=== PATIENT | female | born 1955 | race Caucasian/White ===

== ENCOUNTER → 2021-04-06 | Outpatient (CLI) | payer MEDICARE, OTHER ==
--- NOTE | 2021-04-06 14:29 | Diagnostic Imaging Report ---
EXAMINATION: CT Lung Screening. INDICATION: Current smoker with a 40 pack year history. TECHNIQUE: Noncontrast, low-dose CT imaging performed according to lung cancer screening protocol. Auto Exposure Controls were utilized during the CT exam to meet ALARA standards for radiation dose reduction. COMPARISON: None. FINDINGS: HEART/MEDIASTINUM: Heart size normal. Thoracic aortic contour unremarkable. No suggestion for pathologically enlarged mediastinal lymph nodes on limited, noncontrast imaging. Bilateral breast implants intact. Coarse calcification along the medial right implant surface. LUNGS/MEASURED PULMONARY NODULES: Advanced emphysematous change about the lung parenchyma. Prominent subpleural bullous changes and mild honeycombing present, slightly greater involving the bilateral upper lobe distribution. On image 111 series 2, there is asymmetric nodularity with what appear to be spiculated margins suggested in the right infrahilar region, central right middle lobe. This measures 18 x 13 x 18 mm. OTHER: None. IMPRESSION: Concern for potential nearly 2 cm right infrahilar, central right middle lobe mass. LUNG-RADS CATEGORY: 4b. LUNG SCREENING MANAGEMENT/RECOMMENDATIONS: Given the central location, initially correlation with a PET/CT and/or contrast enhanced CT imaging of the chest is recommended for further assessment. The report was called and faxed to the office of Jose J De La O APRN, by tamara@2:28 PM. Dictated by: Dictated on workstation # [id number]
== END ==
LOC: RAD 13:15
PROVIDERS: ATTEND Nurse Practitioner Family
DX: Z12.2 Encounter for screening for malignant neoplasm of respiratory organs (principal); Z00.00 Encounter for general adult medical examination without abnormal findings; J44.9 Chronic obstructive pulmonary disease, unspecified; R91.8 Other nonspecific abnormal finding of lung field; F17.210 Nicotine dependence, cigarettes, uncomplicated
CPT/HCPCS: 71271

== ENCOUNTER → 2021-04-14 | Outpatient (CLI) | payer MEDICARE, OTHER ==
--- NOTE | 2021-04-14 15:35 | Diagnostic Imaging Report ---
INDICATION: Right middle lobe lung mass. TECHNIQUE: The serum blood glucose level at the time of injection was 99 mg/dL. The patient was administered 13.4 mCi of F-18 FDG intravenously in the left antecubital location and PET imaging was performed from the top of the skull to the mid thighs. Noncontrast CT was also performed for attenuation correction and anatomic correlation. COMPARISON: No prior PET studies are available for comparison. Comparison is made with the CT screening study from 04/06/2021. FINDINGS: There is symmetric activity throughout the brain. The soft tissues of the neck are unremarkable. There is a hypermetabolic mass in the right middle lobe corresponding to the spiculated density noted on the recent CT chest screening study. This measures approximately 15 mm in size. The SUV max is approximately 6. No other hypermetabolic foci in the chest are identified. The savanna and mediastinum are unremarkable. There is physiologic activity throughout the GI and tracts of the abdomen and pelvis. IMPRESSION: 15 mm hypermetabolic mass in the right middle lobe, suspicious for a small lung neoplasm. No hypermetabolic lymphadenopathy or evidence of metastatic disease is identified. Dictated by: Dictated on workstation # [id number]
== END ==
LOC: RAD 10:30
PROVIDERS: ATTEND Nurse Practitioner Family
DX: R91.8 Other nonspecific abnormal finding of lung field (principal)
CPT/HCPCS: 78815; A9552

== ENCOUNTER → 2021-07-09 | Outpatient (CLI) | payer MEDICARE, OTHER ==
[~2021-07-09] MED LIST: RT-ALBUTEROL SULF 2.5 MG/3 ML PRE-MIX VIAL INH ONE
== END ==
LOC: RT 07:43
PROVIDERS: ATTEND Radiology Radiation Oncology
DX: C34.90 Malignant neoplasm of unspecified part of unspecified bronchus or lung (principal)
CPT/HCPCS: 94060; 94726; 94729

== ENCOUNTER → 2021-08-20 | Outpatient (CLI) | payer MEDICARE, OTHER ==
--- NOTE | 2021-08-20 11:35 | Diagnostic Imaging Report ---
EXAMINATION: Magnetic resonance imaging of the right shoulder without contrast. DATE: August 20, 2021. COMPARISON: None. HISTORY: 65-year-old female, right shoulder pain. Injury lifting. TECHNIQUE: Magnetic Resonance Imaging sequences were performed of the shoulder without contrast. FINDINGS: ROTATOR CUFF, LIGAMENTS, TENDONS, AND MUSCLES: There is a 6 mm wide approximately 50% partial thickness articular sided tear of supraspinatus with retraction of torn undersurface tendon fibers by 12 mm as measured on coronal T2 fat saturation sequence image 8. The infraspinatus and teres minor tendons are intact. There is an interstitial tear of the subscapularis tendon. There is normal rotator cuff muscle bulk and signal. LONG HEAD OF BICEPS: The proximal long head of biceps tendon is medially dislocated outside of the bicipital groove. There is proximal long head of biceps tendinopathy. GLENOHUMERAL JOINT: The humeral head is well positioned relative to the glenoid. The labrum is grossly intact. There is no identified paralabral cyst. The articular cartilage is grossly intact. There is no joint effusion. ACROMIOCLAVICULAR JOINT: The acromioclavicular joint is normally aligned. The coracoclavicular and coracoacromial ligaments are intact. There are mild acromioclavicular degenerative changes without undersurface osteophyte. BONE: There is no os acromiale. There is no Hill-Sachs deformity. There is subcortical cystic change underlying the infraspinatus tendon insertion in the humeral head. There is no acute fracture, bone contusion, or evidence of osteonecrosis. BURSAE AND SOFT TISSUES: The bursae and soft tissue surrounding the shoulder are unremarkable. IMPRESSION: 1. 6 mm wide 50% partial thickness articular sided tear of supraspinatus with tendon retraction of undersurface tendon fibers by 12 mm. Interstitial tear of the subscapularis tendon. No fatty muscle atrophy. 2. The proximal long head of biceps tendon is medially dislocated outside of the bicipital groove. There is proximal long head of biceps tendinopathy. 3. Grossly intact labrum and unremarkable additional glenohumeral joint assessment. 4. Mild acromioclavicular degenerative changes without undersurface osteophyte. 5. No acute fracture, bone contusion, or evidence of osteonecrosis. Dictated by: Dictated on workstation # [id number]
== END ==
LOC: RAD 08:18
PROVIDERS: ATTEND Nurse Practitioner Family
DX: M75.111 Incomplete rotator cuff tear or rupture of right shoulder, not specified as traumatic (principal); M19.011 Primary osteoarthritis, right shoulder; S43.004A Unspecified dislocation of right shoulder joint, initial encounter; C34.91 Malignant neoplasm of unspecified part of right bronchus or lung; G89.29 Other chronic pain; X50.9XXA Other and unspecified overexertion or strenuous movements or postures, initial encounter
CPT/HCPCS: 73221

== ENCOUNTER → 2022-05-25 | Outpatient (CLI) | payer MEDICARE, OTHER ==
--- NOTE | 2022-05-25 09:35 | Diagnostic Imaging Report ---
INDICATION: Postmenopausal screening COMPARISON: None FINDINGS: AP Spine L1-L4: [BMD (g/cm2): 0.805] [T-Score: -3.3] [Z-Score: -1.3] [BMD Previous: na] [BMD % Change: na] LT Hip Neck: [BMD (g/cm2): 0.817] [T-Score: -1.6] [Z-Score: 0.2] LT Hip Total: [BMD (g/cm2):0.889] [T-Score:-0.9] [Z-Score: 0.6] [BMD Previous: na] [BMD % Change: na] RT Hip Neck: [BMD (g/cm2):0.816] [T-Score:-1.6] [Z-Score:0.2] RT Hip Total: [BMD (g/cm2):0.842] [T-score:-1.3] [Z-Score:0.3] [BMD Previous:na] [BMD % Change:na] *Indicates significant change from prior examination based on 95% confidence level. World Health Organization criteria for BMD interpretation classify patients as Normal (T-score at or above -1.0), Osteopenic (T-score between -1.0 and -2.5) or Osteoporotic (T-score at or below -2.5). LIMITATIONS AND MODIFICATION: None. FRACTURE RISK (FRAX SCORE): The ten year probability of (%): Major Osteoporotic Fracture: [9.1] Hip Fracture: [2.0] IMPRESSION: 1. Osteoporosis. 2. See below National Osteoporosis Foundation guidelines on when to potentially initiate pharmacologic therapy. Based on the National Osteoporosis Foundation Guidelines, pharmacologic treatment should be initiated in any of the following, unless clinical conditions suggest otherwise: * Any patient with prior fragility fracture of the hip or vertebrae. A spine fracture indicates 5X risk for subsequent spine fracture and 2X risk for subsequent hip fracture. * Osteoporosis (T-score <-2.5). * Postmenopausal women and men age 50 and older with low bone mass/osteopenia (T-score between -1.0 and -2.5) by DXA and 10-year major osteoporotic fracture greater than 20% or a 10-year probability of hip fracture greater than 3%. These fracture risks are supplied above in the FRAX score, if applicable. * Clinician judgement and/or patient preferences may indicate treatment for people with 10-year fracture probabilities above or below these levels. Dictated by: Dictated on workstation # [id number]
== END ==
LOC: RAD 08:38
PROVIDERS: ATTEND Nurse Practitioner Family
DX: Z13.820 Encounter for screening for osteoporosis (principal); M81.0 Age-related osteoporosis without current pathological fracture; Z78.0 Asymptomatic menopausal state
CPT/HCPCS: 77080

== ENCOUNTER → 2023-01-17 | Outpatient (CLI) | payer MEDICARE, OTHER ==
--- NOTE | 2023-01-17 12:49 | Diagnostic Imaging Report ---
PROCEDURE: CT chest without contrast. TECHNIQUE: Multiple contiguous axial images were obtained through the chest without the use of intravenous contrast. Auto Exposure Controls were utilized during the CT exam to meet ALARA standards for radiation dose reduction. INDICATION: C34.90 COMPARISON: 04/06/2021 FINDINGS: Bilateral breast implants are in place. No significant adenopathy within chest, though sensitivity is limited secondary to lack of intravenous contrast. Mild vascular calcifications without aneurysmal dilatation of thoracic aorta. The heart is within normal limits in size. No significant pericardial effusion. No pleural effusion. Previously noted central right middle lobe pulmonary nodule is no longer visualized. Currently, there is volume loss noted associated with any residual right middle lobe. Mild background emphysematous changes. Stable 0.4 cm left upper lobe pulmonary nodule, series 3, image 37. New 0.4 cm right lower lobe pulmonary nodule, series 80. This is near the postsurgical changes within the right middle lobe. The trachea is patent. The adrenal glands appear stable in the prior exam. Visualized upper abdomen appears unremarkable. Mild scattered osseous degenerative changes without acute osseous abnormality. IMPRESSION: New 0.4 cm right lower lobe pulmonary nodule. This is favored to simply relate to scarring and postsurgical changes. However, a followup CT of the chest is recommended in 6 months given interval development. Previously noted right middle lobe irregular pulmonary nodule is no longer visualized. Significant volume loss and near complete collapse of the residual right middle lobe. Background emphysematous changes. Additional postsurgical and chronic findings as above. Dictated by: Dictated on workstation # [id number]
== END ==
LOC: RAD 09:39
PROVIDERS: ATTEND Radiology Radiation Oncology
DX: C34.90 Malignant neoplasm of unspecified part of unspecified bronchus or lung (principal); R91.8 Other nonspecific abnormal finding of lung field; J43.9 Emphysema, unspecified; Z98.82 Breast implant status
CPT/HCPCS: 71250

== ENCOUNTER 2023-06-15 08:24 | Outpatient (CLI) | payer MEDICARE, OTHER ==
[~2023-06-15] VITALS: Ht 155 cm; Wt 55.2 kg
[2023-06-15] MEDS ORDERED: ATOR20TA66 PO (14:20)
[2023-06-15] MEDS ORDERED: ASPI-1238 PO (14:20)
== END 2023-06-15 14:23 | disposition home or self-care (01) ==
LOC: PREOP 08:24
PROVIDERS: ATTEND Surgery
DX: Z01.818 Encounter for other preprocedural examination (principal)

== ENCOUNTER 2023-06-28 08:20 | Day surgery (SDC) | payer MEDICARE, OTHER ==
[~2023-06-28] VITALS: Ht 155 cm; Wt 55.2 kg
[~2023-06-28 08:20] MED LIST changes: +ASPI-1238 PO; +ATOR20TA66 PO; -RT-ALBUTEROL SULF 2.5 MG/3 ML PRE-MIX VIAL INH ONE
[2023-06-28] MEDS ORDERED: LACTATED RINGERS 1,000 ML IV STA (08:28)
[2023-06-28] MEDS ORDERED: HURRICAINE EXT TUBE (BENZOCAINE) XX PRN (08:30)
--- NOTE | 2023-06-28 08:50 | Progress Note-Pre Operative ---
Pre-Operative Progress Note Date H&P Reviewed: Jun 28, 2023 Time H&P Reviewed: 08:50 History & Physical: H&P Reviewed, Patient Examed, No changes noted Pre-Operative Diagnosis: GERD and screening colonoscopy GUALBERTO COUGHLIN DO Jun 28, 2023 08:50
[2023-06-28] MEDS ORDERED: PROPOFOL INJECTION 50 ML IV ONE (10:01)
[2023-06-28] MEDS ORDERED: MIDAZOLAM INJ 2 MG/2 ML VIAL ONE (10:01)
[2023-06-28] MEDS ORDERED: PHENYLEPHRINE 100 MCG/ML 10 ML (ANESTHESIA) SYR ONE (10:37)
[2023-06-28 10:44] VITALS: BP 117/59
[2023-06-28 10:49] VITALS: BP 96/46
[2023-06-28 10:54] VITALS: BP 91/53
--- NOTE | 2023-06-28 10:54 | Progress Note-Post Operative ---
Post-Operative Progess Note Surgeon (s)/Agent Producer (s) Surgeon GUALBERTO COUGHLIN DO Agent Producer: none Pre-Operative Diagnosis GERD and screening colonoscopy Post-Operative Diagnosis colon polyps, duodenitis, mucosal change of body Procedure & Operative Findings Date of Procedure 06/28/23 Procedure Performed/Findings egd with biopsies colonoscopy with hot bx polypectomy x5 Anesthesia Type per ORDER MANAGER Estimated Blood Loss Estimated blood loss (mL): none Specimens/Packing Specimens Removed duodenum, antrum, body of stomach, ge sigmoid, rectum GUALBERTO COUGHLIN DO Jun 28, 2023 10:53
[2023-06-28 10:57] VITALS: BP 109/58
[2023-06-28] MEDS ORDERED: PANT40TA2 PO (10:57)
--- NOTE | 2023-06-28 11:00 | Discharge Inst-Simple/Standard ---
Discharge Inst-Standard Discharge Medications New, Converted or Re-Newed RX: Transmitted to Pharmacy Patient Instructions/Follow Up Plan of Care/Instructions/FU: Halima 2 weeks Activity as Tolerated: Yes Discharge Diet: Regular Diet GUALBERTO COUGHLIN DO Jun 28, 2023 11:00
[2023-06-28 11:10] VITALS: BP 109/58
[2023-06-28 11:48] VITALS: BP 109/58
--- NOTE | 2023-06-28 14:09 | Anesthesia-General Post-Op ---
MAC Patient Condition Mental Status/LOC: Same as Preop Cardiovascular: Satisfactory Nausea/Vomiting: Absent Respiratory: Satisfactory Pain: Controlled Complications: Absent Post Op Complications Complications None Follow Up Care/Instructions Patient Instructions None needed. Anesthesiology Discharge Order Discharge Order Patient is doing well, no complaints, stable vital signs, no apparent adverse anesthesia problems. No complications reported per nursing. MARYJO MEYER CRNA Jun 28, 2023 14:09
--- NOTE | 2023-06-28 15:11 | OPERATIVE REPORT ---
DATE OF SERVICE: 06/28/2023 PREOPERATIVE DIAGNOSES: Gastroesophageal reflux disease and screening colonoscopy. POSTOPERATIVE DIAGNOSIS: Colon polyps, duodenitis, mucosal change of the body of the stomach. PROCEDURES: EGD with biopsies, colonoscopy with hot biopsy polypectomy x5. SURGEON: Gualberto Varghese DO ANESTHESIA: Per CLIENT SUCCESS MANAGER. ESTIMATED BLOOD LOSS: None. COMPLICATIONS: None. SPECIMEN: Duodenum, antrum, body of stomach, GE junction, sigmoid and rectal polyps. INDICATIONS: The patient is a [id number], needing screening colonoscopy and has GERD symptoms. She understands risks and benefits of procedure and wishes to proceed. Consent was signed in chart. DESCRIPTION OF PROCEDURE: The patient was taken to endoscopy suite, placed in left lateral recumbent position. Timeout was performed. Scope was inserted in the mouth, down the esophagus, stomach, into the duodenum without difficulty. No polyps, masses or ulcerations within the duodenum in the second portion. In the first portion, a limited duodenitis appearance. Biopsy of duodenum was obtained. Scope was slowly retracted back into the stomach. No polyps, masses or ulcerations. Slight erythematous changes. Biopsy of the antrum was obtained. Also some mucosal changes of the body of stomach, which biopsy of the body was obtained as well. Scope was retroflexed , noting no other pathology. Scope was returned to its normal position, slowly withdrawn until distal esophagus. Biopsy of GE junction was obtained. Scope was then slowly retracted back until completely removed, noting no other pathology. 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 No masses or ulcerations. Scope was inserted in the rectum, advanced all the way to the cecum with minimal difficulty. Prep was adequate. Scope was then slowly retracted back. No polyps, masses or ulcerations in the cecum, ascending, transverse, descending colon. Sigmoid colon had 2 small polyps, which hot biopsy polypectomy was performed. Scope was then continuously retracted back to the rectum where 3 small polyps were present, which hot biopsy polypectomy was performed. Scope was retroflexed noting the fibroepithelial polyp. Scope was returned to its normal position, slowly withdrawn until completely removed. The patient tolerated the procedure well without complications, taken to recovery room in stable condition. RECOMMENDATIONS: The patient will be started on Protonix 40 mg daily. We will see how her symptoms are doing in a couple of weeks. Recommend she followups to go over pathology. She would like to have the fibroepithelial polyp removed, we could do that in the OR. The patient will need repeat colonoscopy in 5 years. Job ID: [id number] DocumentID: [id number] Dictated Date: 06/28/2023 11:02:51 Field Secretary Date: 06/28/2023 15:09:00 Dictated By: GUALBERTO VARGHESE DO
== END 2023-06-28 11:48 | disposition home or self-care (01) ==
LOC: ENDO 08:20
PROVIDERS: ATTEND Surgery
DX: Z12.11 Encounter for screening for malignant neoplasm of colon (principal); K63.5 Polyp of colon; K62.1 Rectal polyp; K25.9 Gastric ulcer, unspecified as acute or chronic, without hemorrhage or perforation; K21.00 Gastro-esophageal reflux disease with esophagitis, without bleeding; K29.80 Duodenitis without bleeding; K31.89 Other diseases of stomach and duodenum; F17.210 Nicotine dependence, cigarettes, uncomplicated

== ENCOUNTER 2023-07-12 05:30 | Outpatient (CLI) | payer MEDICARE, OTHER ==
[~2023-07-12] VITALS: Ht 156 cm; Wt 54.0 kg
[~2023-07-12 05:30] MED LIST changes: +PANT40TA2 PO
[2023-07-12] MEDS ORDERED: TUME1CAP PO (15:40)
[2023-07-12] MEDS ORDERED: MULT-974 PO (15:40)
[2023-07-12] MEDS ORDERED: OMEG1CAP24 PO (15:40)
[2023-07-12] MEDS ORDERED: ALBU2.5V4 INH (15:40)
[2023-07-12] MEDS ORDERED: VIT1CAPS PO (15:40)
[2023-07-12] MEDS ORDERED: FEXO-14 PO (15:40)
== END 2023-07-12 16:53 | disposition home or self-care (01) ==
LOC: PREOP 05:30
PROVIDERS: ATTEND Surgery
DX: Z01.818 Encounter for other preprocedural examination (principal)

== ENCOUNTER 2023-07-14 08:13 | Day surgery (SDC) | payer MEDICARE, OTHER ==
[2023-07-14] VITALS (9 sets, daily range): BP systolic 89–116; BP diastolic 44–71
[~2023-07-14] VITALS: Ht 156 cm; Wt 54.0 kg
[~2023-07-14 08:13] MED LIST changes: +ALBU2.5V4 INH; +FEXO-14 PO; +MULT-974 PO; +OMEG1CAP24 PO; +TUME1CAP PO; +VIT1CAPS PO
[2023-07-14] MEDS ORDERED: ceFAZolin INJECTION 2,000 MG in NS (IVPB) 50 ML 50 ML IV ONE (08:30)
[2023-07-14] MEDS ORDERED: LACTATED RINGERS 1,000 ML 1,000 ML IV PRN (08:30)
[2023-07-14] MEDS ORDERED: LIDOCAINE/EPI 1%-1:200,000 (XYLOCAINE) 30 ML VIAL INJ ONE (09:01)
--- NOTE | 2023-07-14 09:23 | Progress Note-Pre Operative ---
Pre-Operative Progress Note Date H&P Reviewed: Jul 14, 2023 Time H&P Reviewed: 09:22 History & Physical: H&P Reviewed, Patient Examed, No changes noted Pre-Operative Diagnosis: fibroepithelial polyp GUALBERTO COUGHLIN DO Jul 14, 2023 09:23
[2023-07-14] MEDS ORDERED: fentaNYL INJECTION 100 MCG/2 ML VIAL ONE (09:48)
[2023-07-14] MEDS ORDERED: LIDOCAINE PF 2% 5 ML VIAL ONE (09:48)
[2023-07-14] MEDS ORDERED: proPOfol INJECTION 200 MG/20 ML VIAL IV ONE (09:48)
[2023-07-14] MEDS ORDERED: dexAMETHasone INJ 10 MG/ML 1 ML VIAL ONE (10:30)
[2023-07-14] MEDS ORDERED: ONDANSETRON INJECTION 4 MG/2 ML (SDV) ONE (10:30)
[2023-07-14] MEDS ORDERED: SEVOFLURANE (ULTANE) 15 ML INHAL SOLN ONE (10:31)
--- NOTE | 2023-07-14 10:34 | Progress Note-Post Operative ---
Post-Operative Progess Note Surgeon (s)/Tower Observer (s) Surgeon GUALBERTO COUGHLIN DO Tower Observer: na Pre-Operative Diagnosis fibroepithelial polyp Post-Operative Diagnosis internal hemorrhoid and fibroepithelial polyp Procedure & Operative Findings Date of Procedure 07/14/23 Procedure Performed/Findings excision internal hemorrhoid and fibroepithelial polyp Anesthesia Type general Estimated Blood Loss Estimated blood loss (mL): minimal Specimens/Packing Specimens Removed internal hemorrhoid and fibroepithelial polyp GUALBERTO COUGHLIN DO Jul 14, 2023 10:34
--- NOTE | 2023-07-14 10:37 | Discharge Inst-Simple/Standard ---
Discharge Inst-Standard Patient Instructions/Follow Up Plan of Care/Instructions/FU: 2 weeks Halima Activity as Tolerated: Yes Discharge Diet: Regular Diet Other Inst to Patient Follow up Appt: Make appointment for 2 week. Instructions:. No strenuous activity. May shower in 24 hours, no tub bath or soaking. Use incentive spirometer at home as directed. No Smoking Keep area clean and dry Sitz bath after bowel movements Symptoms to Report: Appetite Changes, Extremity Discoloration, Numbness/Tingling, Swelling Increased, Bleeding Excessive, Eyesight Changes, Pain Increased, Urine Color Change, Constipation(Persistent), Fever over 101 degree F, Pain/Pressure in chest, Urinating Difficulty, Cough Up/Vomit Blood, Heart Beat Irreg/Pounding, Pain/Pressure in jaw, Vaginal Bleeding Increase, Cramps in feet or legs, Lightheadedness, Pain/Pressure in shoulder, Diarrhea(Persistent), Memory Changes Suddenly, Questions/Concerns, Weight gain consecutive days, Dizziness/Fainting, Nausea/Vomiting, Shortness of Breath, Weight gain over 2 pounds If questions or concerns contact your physician Or seek help at emergency department. GUALBERTO COUGHLIN DO Jul 14, 2023 10:37
--- NOTE | 2023-07-14 14:17 | Anesthesia-General Post-Op ---
General Patient Condition Mental Status/LOC: Same as Preop Cardiovascular: Satisfactory Nausea/Vomiting: Absent Respiratory: Satisfactory Pain: Controlled Complications: Absent Post Op Complications Complications None Follow Up Care/Instructions Patient Instructions None needed. Anesthesia/Patient Condition Patient Condition Patient is doing well, no complaints, stable vital signs, no apparent adverse anesthesia problems. No complications reported per nursing. SADI LOPEZ CRNA Jul 14, 2023 14:17
--- NOTE | 2023-07-14 18:28 | OPERATIVE REPORT ---
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 POSTOPERATIVE DIAGNOSES: Internal hemorrhoid and fibroepithelial polyp. PROCEDURE: Excision of internal hemorrhoid and fibroepithelial polyp. SURGEON: Gualberto Varghese DO ANESTHESIA: General. ESTIMATED BLOOD LOSS: Minimal. COMPLICATIONS: None. INDICATIONS: The patient is a 67-year-old female with a large fibroepithelial polyp. She understands risks and benefits of procedure and wished to proceed. Consent was signed in chart. DESCRIPTION OF PROCEDURE: The patient was taken to the operating suite. She was placed in lithotomy position. Timeout was performed. Digital rectal exam was performed with a fibroepithelial polyp of the right side of the anus. No other palpable abnormalities. Dittmar retractor was inserted visualizing a right posterior internal hemorrhoid with a fibroepithelial polyp attached to this area. The fibroepithelial polyp was grasped and slightly retracted out and a Harmonic focus was used to excise the internal hemorrhoid and fibroids fibroepithelial polyp. This was then sent for pathology. Hemostasis was achieved. No other pathology noted. Dittmar retractor was removed and a pudendal block was performed on the right side. The patient tolerated the procedure well without any complications, taken to recovery room in stable condition. Job ID: [id number] DocumentID: [id number] Dictated Date: 07/14/2023 11:42:54 Swine Nutritionist Date: 07/14/2023 18:25:00 Dictated By: GUALBERTO VARGHESE DO
== END 2023-07-14 12:20 ==
LOC: SDC 08:13
PROVIDERS: ATTEND Surgery
DX: K62.0 Anal polyp (principal); K64.8 Other hemorrhoids; K31.89 Other diseases of stomach and duodenum; K21.00 Gastro-esophageal reflux disease with esophagitis, without bleeding; K63.5 Polyp of colon; L91.8 Other hypertrophic disorders of the skin; F17.210 Nicotine dependence, cigarettes, uncomplicated; Z80.0 Family history of malignant neoplasm of digestive organs
CPT/HCPCS: 87081